=== PATIENT | female | born 1995 | race Caucasian/White ===

== ENCOUNTER 2017-08-28 15:08 | Emergency (ER) | payer OTHER ==
[2017-08-28 15:23] VITALS: BP 123/70
--- NOTE | 2017-08-28 15:25 | UC ---
Throat Pain/Nasal Kael HPI - HPI Summary HPI Summary: 22 yo female presents with sore throat, swollen tonsils, and body aches since this morning. She tells me that she has a hx of strep at least once or twice a year for the last few years - this feels the same. Has not taken anything OTC. Denies fever, chills, cough, SOB, chest pain. - History of Current Complaint Chief Complaint: UCGeneralIllness Stated Complaint: THROAT COMPLAINT Time Seen by Provider: 08/28/17 15:24 Hx Obtained From: Patient Hx Last Menstrual Period: 07/29/17 Onset/Duration: Sudden Onset Severity: Moderate Pain Intensity: 6 Pain Scale Used: 0-10 Numeric - Allergies/Home Medications Allergies/Adverse Reactions: Allergies Allergy/AdvReac Type Severity Reaction Status Date / Time No Known Allergies Allergy Verified 05/23/13 14:23 Home Medications: Home Medications Levonorgestrel (Iud) [Mirena IUD] 1 each TOPICAL DAILY 08/28/17 [History Confirmed 08/28/17] PMH/Surg Hx/FS Hx/Imm Hx - Additional Past Medical History Additional PMH: None Previously Healthy: Yes - Surgical History Surgical History: None - Family History Known Family History: Positive: None - Social History Occupation: Student Lives: With Family Alcohol Use: Occasionally Substance Use Type: None Smoking Status (MU): Never Smoked Tobacco Review of Systems Constitutional: Other - Body aches Skin: Negative Eyes: Negative ENT: Sore Throat Respiratory: Negative Cardiovascular: Negative Neurovascular: Negative Neurological: Negative Psychological: Negative All Other Systems Reviewed And Are Negative: Yes Physical Exam - Summary Physical Exam Summary: GENERAL: NAD. WDWN. No pain distress. SKIN: No rashes, sores, lesions, or open wounds. HEENT: Head: AT/NC Eyes: Conjunctiva clear without inflammation or discharge. Ears: Hearing grossly normal. TMs intact, no bulging, erythema, or edema. Nose: Nasal mucosa pink and moist. NTTP maxillary and frontal sinus. Throat: Posterior oropharynx mild erythema and 3+ tonsillar enlargement. Mild exudates. Uvula midline. No hoarse voice or muffled voice. NECK: Supple. Mild tonsillar LAD TTP CHEST: CTAB. No r/r/w. No accessory muscle use. Breathing comfortably and in no distress. CV: RRR. Without m/r/g. Pulses intact. Brisk cap refill. NEURO: Alert. CN II-XII grossly intact. PSYCH: Age appropriate behavior. Triage Information Reviewed: Yes Vital Signs: Initial Vital Signs Temp 99.1 F 08/28/17 15:19 Pulse 112 08/28/17 15:19 Resp 16 08/28/17 15:19 BP 123/70 08/28/17 15:19 Pulse Ox 100 08/28/17 15:19 Laboratory Tests 08/28/17 15:21 Group A Strep Rapid Negative Throat Pain/Nasal Course/Dx - Course Course Of Treatment: Suspect tonsillitis vs mono. Rx for zpak and prednisone. - Differential Dx/Diagnosis Provider Diagnoses: tonsillitis Discharge - Sign-Out/Discharge Documenting (check all that apply): Discharge/Admit/Transfer - Discharge Plan Condition: Stable Disposition: HOME Prescriptions: Azithromycin TAB* [Zithromax TAB (Z-MARKOS) 250 mg #6 tabs] 2 tab PO .TODAY, THEN 1 DAILY #1 markos predniSONE TAB* [Deltasone TAB*] 50 mg PO DAILY #5 tab Patient Education Materials: Tonsillitis (ED) Referrals: Salomón Schrader DO [Primary Care Provider] - Additional Instructions: If you develop a fever, shortness of breath, chest pain, new or worsening symptoms - please call your PCP or go to the ED. - Billing Disposition and Condition Condition: STABLE Disposition: Home
== END 2017-08-28 15:44 | disposition home or self-care (01) ==
LOC: UCCORT 15:08
DX: J03.90 Acute tonsillitis, unspecified (principal)
CPT/HCPCS: 87651; 99202; G0463